=== PATIENT | male | born 1995 | race African-American/Black ===

== ENCOUNTER 2024-07-03 17:06 | Emergency (ER) | payer MEDICAID ==
[~2024-07-03] VITALS: Ht 170.2 cm; Wt 60.0 kg
[2024-07-03] MEDS ORDERED: IBUP-2077 MT (20:00)
[2024-07-03] MEDS: KETOROLAC 30MG/ML VIAL IM ONE (20:57)
[2024-07-03 20:59] VITALS: BP 123/80; PULSE 92; RESP 20; TEMP 36.8; O2SAT 100
== END 2024-07-03 20:59 | disposition home or self-care (01) ==
LOC: ER 17:06
DX: S42.351A Displaced comminuted fracture of shaft of humerus, right arm, initial encounter for closed fracture (principal); Z98.890 Other specified postprocedural states; Z88.8 Allergy status to other drugs, medicaments and biological substances; X58.XXXA Exposure to other specified factors, initial encounter; Y93.89 Activity, other specified; Y92.89 Other specified places as the place of occurrence of the external cause; Y99.8 Other external cause status
CPT/HCPCS: 99284; 29105; 73030; 73060; 73070; 96372; J1885